=== PATIENT | female | born 1995 | race Caucasian/White ===

== ENCOUNTER 2019-01-26 12:49 | Day surgery (SDC) | payer OTHER ==
[2019-01-26 13:27] VITALS: BP 122/81; TEMP 98.3; BMI 35.2
[2019-01-26] MEDS ORDERED: Acetaminophen 500 MG TAB PO SCH (13:45)
--- NOTE | 2019-01-26 13:52 | PDOC.FPROB ---
[facility] OB H&P: HPI - History of Present Illness Chief Complaint: Vomiting History of Present Illness: 23 yo @ 36.2 wks presents for vomiting that began this morning. No sick contacts. Denies fever, dysuria, contractions, VB, VD, decreased appetite. Reports 2 loose BMs yesterday, no diarrhea. Also reports constant low back pain that she has had >1 week but seems worse today. Currently 6/10. Denies current nausea and is tolerating liquids well. Feels movement. has been uncomplicated. Primary Care Physician: Junior [facility] OB H&P: Current - Care : 2 Para: 1 Gestational age: 36.2 Due date: 02/21/19 - OB Labs Blood type: O RH: positive Antibody Screen: negative HIV: negative RPR: negative HepBsAg: negative Rubella: immune Gonorrhea: negative Chlamydia: negative [facility] H&P: History - Past Medical History PMH: Denies - Surgical History Sx History: wisdom teeth removal - Social History Social History: Denies tobacco, alcohol, drug use. - Family History Family History: Father - HTN [facility] H&P: Medications - Current Home Medications: Medication Instructions Recorded Confirmed Type No122/Iron/Folic Acid 1 each PO DAILY 01/26/19 01/26/19 History [ Multi Tablet] Allergies/Adverse Reactions: Allergies Allergy/AdvReac Type Severity Reaction Status Date / Time No Known Allergies Allergy Verified 01/26/19 13:28 [facility] OB H&P: ROS - Review of Systems General: reports: other (decreased appetite). denies: fever/chills Eyes: denies: vision changes ENT: denies: nasal congestion, rhinorrhea Cardiovascular: denies: chest pain, palpitation Respiratory: denies: cough, congestion Gastrointestinal: reports: nausea, vomiting. denies: diarrhea, constipation Genitourinary (Female): denies: incontinence, dysuria, vaginal discharge, vaginal bleeding, contractions, vaginal pressure Musculoskeletal: reports: pain. denies: stiffness Neurologic: denies: weakness, headache Integumentary: denies: rash, lesions [facility] OB H&P: Vital Signs - Maternal Vital signs: Vital Signs - First Documented Temp Pulse Resp BP Pulse Ox 98.3 F 101 H 18 122/81 96 01/26/19 13:12 01/26/19 13:12 01/26/19 13:12 01/26/19 13:12 01/26/19 13:12 - Heart Tones Baseline: 160 Variability: moderate Acceleration: present Deceleration: absent Anchor contractions every: none [facility] OB H&P: Physical Exam - Physical Exam General: NAD, awake, alert and oriented HEENT: normocephalic and atraumatic, MMM Heart: normal S1/S2, other (tachycardia) General: CTAB, no respiratory distress Abdomen: soft, gravid, non-tender Skin: good tugor, capillary refill <2 seconds Lymphatic: no unusual bruising or bleeding Psychiatric: normal mood and affect - Pelvic Exam Vulva: normal hair distribution SVE: 1/thick/high [facility] OB H&P: A/P - Problem List (1) Vomiting affecting Current Visit: Yes Status: Acute Code(s): O21.9 - VOMITING OF , UNSPECIFIED Discussion: Date/Time: 01/26/19 1350 Vomiting - Consider gastroenteritis vs UTI - pending UA - Afebrile, mild tachycardia. Will give PO hydration and continue to monitor. Denies current nausea but will give antiemetic if occurs. - Tylenol for back pain This H&P was discussed with Dr. Noe who agree with the above documentation and plan.
[2019-01-26 14:40] LABS: Bilirubin Negative (Negative); Blood, Urine Trace (Negative); Clarity Clear (Clear); Glucose, Urine (Dipstick) Normal (Negative); Leukocyte Negative Leu/uL (Negative); Mucous/LPF 2+ LPF (<2+); Nitrite Negative (Negative); Protein, Urine (Dipstick) 50 mg/dL (Neg-Trace); Squamous Epithelial 0-3 HPF (0-3); Transitional Epithelial 0-3 HPF (None Seen); Urobilinogen Normal mg/dL (Less than 2); WBC/HPF 0-3 HPF (0-3)
[2019-01-26 14:57] LABS: Bacteria/HPF None Seen HPF (None Seen)
--- NOTE | 2019-01-26 15:10 | PDOC.EVN ---
Event Note - Event Note Event Note: UA negative for infection. Patient has tolerated liquids well, tachycardia resolved. She is feeling better overall. Recommended tylenol as needed for back pain. She has a follow up appt with Dr. Pacheco on Sunday. Encouraged to keep this appt. Return precautions given. Patient discharged home.
== END 2019-01-26 15:20 | disposition home or self-care (01) ==
LOC: L&D/OP 12:49
PROVIDERS: ATTEND Obstetrics & Gynecology
DX: O21.2 Late vomiting of pregnancy (principal); O99.89 Other specified diseases and conditions complicating pregnancy, childbirth and the puerperium; M54.5 Low back pain; Z3A.36 36 weeks gestation of pregnancy
CPT/HCPCS: 51701; 81001; 99283